=== PATIENT | male | born 1945 | race Caucasian/White ===

== ENCOUNTER → 2020-09-28 | Outpatient (CLI) | payer OTHER ==
[~2020-09-28] MED LIST: ACET1TAB55 PO; ALBU83IN INH; BROV15NE NEB; BUDE0.254 NEB; CARV6.25 PO; CEFT1INJ5 IV; ELIQ5TAB PO; FURO20TA2 PO; INSU100V2 SQ; LIDOCAINE 1% MDV 20ML VIAL As Ordered ONE; MAGN400T2 PO; PANT40TA29 PO; PRAV80TA2 PO
[2020-09-28 12:16] VITALS: BP 131/76
--- NOTE | 2020-09-28 17:31 | REP ---
PROCEDURE NAME: IR FLUORO GUIDANCE CLINICAL INFORMATION: BACTEREMIA. COMPARISON: None. PROCEDURE DESCRIPTION: The procedure was performed by EVE Che, under the direct supervision of Dr. Godwin. The risks and benefits of the procedure were explained to the patient and an informed consent was obtained both verbally and written. Directly prior to the start of the procedure a formal time-out was completed in the procedure room. The right basilic vein was localized using ultrasound guidance. The skin was prepped and draped in sterile fashion. One mL of 1% lidocaine 10 mg/mL was used as a local anesthetic. Using ultrasound guidance the right basilic vein was cannulated, and a 0.018 guidewire was inserted and advanced to the level of SVC using fluoroscopic guidance. The needle was removed and a 4.5 Cymraes dilator and peel-away sheath was inserted over the guidewire. A 4.5 Cymraes single lumen catheter was cut to a length of 45 cm. The dilator was removed and the catheter was inserted over the guidewire with the tip ending at the level of the SVC. The peel-away sheath was removed and the catheter was flushed with heparinized saline as per hospital protocol. The catheter was affixed to the skin and a sterile dressing was applied. The patient tolerated the procedure well and there were no immediate complications. CONCLUSION: PICC line insertion into the right basilic vein. 0.6 minutes of fluoroscopy time was utilized for this procedure. Some fluoroscopic images are performed with last image hold technology. These images require no additional radiation. <Electronically signed by Zoya Peres > 09/28/20 1620 <Electronically signed by Raúl Godwin > 09/28/20 4510
== END ==
LOC: M IRPRO 12:42
PROVIDERS: ATTEND Internal Medicine
DX: R78.81 Bacteremia (principal)
CPT/HCPCS: 36569; C1751; J1642; J1644